=== PATIENT | female | born 1950 | race Caucasian/White ===

== ENCOUNTER 2020-02-23 15:49 | Inpatient (IN) ==
[2020-02-23] MEDS ORDERED: ONDANSETRON 4 MG/2 ML VIAL ONE ×3 (15:57→18:08)
[2020-02-23] MEDS ORDERED: MORPHINE 4 MG/1 ML VIAL ONE (15:58)
[2020-02-23] MEDS ORDERED: DIPH/TET/ACEL PERT BOOSTER VACCINE 0.5 ML VIAL IM ONE (16:03)
[2020-02-23] MEDS ORDERED: SODIUM CHLORIDE 0.9% 1,000 ML IV STA (16:03)
[2020-02-23] MEDS ORDERED: fentaNYL 100 MCG/2 ML VIAL ONE ×2 (16:06→18:06)
[2020-02-23 16:23] LABS: Basophils # 0.1 10*3/uL (0.0-0.2); Basophils % 0.7 % (0.0-0.8); Eosinophils # 0.2 10*3/uL (0.0-0.87); Eosinophils % 1.7 % (0.00-10.9); Hematocrit 40.8 VOL% (35.7-47.0); Hemoglobin 12.9 GM/DL (12.0-16.0); Immature Granulocytes % 0.2 %; Immature Granulocytes Absolute 0.02 #; Lymphocytes % 39.1 % (21.3-54.2); Mean Corpuscular HGB Conc 31.6 GM/DL (32-36); Mean Corpuscular Volume 85.7 FL (87-102); Mean Platelet Volume 9.1 FL (9.6-12.0); Monocytes % 6.4 % (1.7-12.7); Neutrophils % 51.9 % (38.7-73.9); Platelet Count 351 T/CUMM (130-400); Red Blood Count 4.76 MC/CUMM (3.8-5.5); Red Cell Distribution Width 14.1 % (9.3-17.3); White Blood Count 10.1 T/CUMM (4-12)
[2020-02-23] MEDS ORDERED: ONDANSETRON 4 MG/2 ML VIAL IV PRN ×2 (16:31→20:21)
[2020-02-23] MEDS ORDERED: ACETAMINOPHEN 325 MG TABLET PO PRN (16:31)
[2020-02-23 16:33] LABS: PT Patient Result 11.1 SECS (9.8-11.9)
[2020-02-23 16:49] LABS: Albumin 3.7 G/DL (3.4-5.0); Bilirubin,Total 0.7 MG/DL (0.2-1.0); Calcium 8.7 MG/DL (8.5-10.1); Osmolality,Calculated 277.7 MOS/KG (273-304); Total Protein 7.7 G/DL (6.4-8.3)
[2020-02-23] MEDS ORDERED: fentaNYL 100 MCG/2 ML VIAL IV STA (16:55)
[2020-02-23] MEDS: LACTATED RINGERS 1,000 ML IV SCH ×2 (17:30→21:18)
[2020-02-23] MEDS ORDERED: LIDOCAINE 2% 5 ML VIAL ONE (18:06)
[2020-02-23] MEDS ORDERED: SEVOFLURANE 1 UNIT/15 MINUTE INH ONE (18:06)
[2020-02-23] MEDS ORDERED: propofoL 200 MG/20 ML VIAL IV ONE (18:06)
[2020-02-23] MEDS ORDERED: KETOROLAC 30 MG/1 ML VIAL ONE (18:07)
[2020-02-23] MEDS ORDERED: PHENYLEPHRINE 1 MG/10 ML SYRINGE IV ONE (18:07)
[2020-02-23] MEDS ORDERED: DEXAMETHASONE 4 MG/1 ML VIAL ONE (18:07)
[2020-02-23] MEDS ORDERED: MIDAZOLAM 2 MG/2 ML VIAL ONE (18:07)
[2020-02-23] MEDS ORDERED: MEPERIDINE 25 MG/1 ML VIAL ONE (18:07)
[2020-02-23] MEDS ORDERED: ACETAMINOPHEN 1,000 MG/100 ML VIAL IV ONE (18:07)
[2020-02-23] MEDS ORDERED: SUCCINYLCHOLINE 200 MG/10 ML VIAL ONE (18:07)
[2020-02-23] MEDS ORDERED: HYDROmorphone 2 MG/1 ML VIAL ONE (18:08)
[2020-02-23] MEDS ORDERED: LACTATED RINGERS 2,000 ML IV ONE (18:08)
[2020-02-23] MEDS ORDERED: MEPERIDINE 25 MG/1 ML VIAL IV PRN (18:19)
[2020-02-23] MEDS: HYDROmorphone 2 MG/1 ML VIAL IV PRN ×4 (18:20→18:40)
[2020-02-23] MEDS ORDERED: PROMETHAZINE 25 MG/1 ML VIAL IM PRN (20:21)
[2020-02-23] MEDS: KETOROLAC 15 MG/1 ML VIAL IV SCH (21:15)
[2020-02-24] MEDS: KETOROLAC 15 MG/1 ML VIAL IV SCH ×4 (03:30→21:12)
[2020-02-24] MEDS: LACTATED RINGERS 1,000 ML IV SCH ×2 (04:47→07:32)
[2020-02-24 05:42] LABS: Hematocrit 36.3 VOL% (35.7-47.0); Hemoglobin 11.6 GM/DL (12.0-16.0); Mean Corpuscular Volume 85.4 FL (87-102); Platelet Count 215 T/CUMM (130-400); Red Blood Count 4.25 MC/CUMM (3.8-5.5); Red Cell Distribution Width 14.3 % (9.3-17.3); White Blood Count 9.4 T/CUMM (4-12)
[2020-02-24 05:43] LABS: Basophils % 0.1 % (0.0-0.8); Immature Granulocytes % 0.5 %; Immature Granulocytes Absolute 0.05 #; Lymphocytes # 0.6 10*3/uL (1.4-4.0); Lymphocytes % 5.8 % (21.3-54.2); Mean Platelet Volume 8.9 FL (9.6-12.0); Monocytes % 4.9 % (1.7-12.7); Neutrophils % 88.7 % (38.7-73.9)
[2020-02-24 06:06] LABS: Calcium 8.4 MG/DL (8.5-10.1); Osmolality,Calculated 274.8 MOS/KG (273-304)
[2020-02-24] MEDS ORDERED: PANTOPRAZOLE 40 MG TABLET PO SCH (09:00)
[2020-02-24] MEDS: ENOXAPARIN 40 MG/0.4 ML SYRINGE SUBCUT SCH (09:51)
[2020-02-24] MEDS: HYDROmorphone 2 MG/1 ML VIAL IV PRN (14:06)
[2020-02-25] MEDS: KETOROLAC 15 MG/1 ML VIAL IV SCH ×3 (03:12→15:08)
[2020-02-25] MEDS: ENOXAPARIN 40 MG/0.4 ML SYRINGE SUBCUT SCH (10:11)
[2020-02-25] MEDS ORDERED: ACETAMINOPHEN 325 MG TABLET PO PRN (19:53)
[2020-02-26] MEDS: ENOXAPARIN 40 MG/0.4 ML SYRINGE SUBCUT SCH (11:26)
[2020-02-26] MEDS: DEXT 5% NACL 0.45% KCL 20 MEQ 20 MEQ/1,000 ML BAG IV SCH ×2 (11:26→21:21)
[2020-02-26] MEDS: CLINDAMYCIN INJ 900 MG in PREMIX 1 EACH IV SCH ×2 (11:27→17:08)
[2020-02-26] MEDS: LEVOFLOXACIN INJ 750 MG in PREMIX 1 EACH IV SCH (12:54)
[2020-02-26] MEDS: HYDROmorphone 2 MG/1 ML VIAL IV PRN (21:22)
[2020-02-27] MEDS: CLINDAMYCIN INJ 900 MG in PREMIX 1 EACH IV SCH ×3 (00:03→19:16)
[2020-02-27] MEDS: DEXT 5% NACL 0.45% KCL 20 MEQ 20 MEQ/1,000 ML BAG IV SCH ×3 (05:46→22:34)
[2020-02-27] MEDS: MAGNESIUM HYDROXIDE SUSP 30 ML UDCUP PO PRN (08:28)
[2020-02-27] MEDS: HYDROmorphone 2 MG/1 ML VIAL IV PRN (10:26)
[2020-02-27] MEDS: LEVOFLOXACIN INJ 750 MG in PREMIX 1 EACH IV SCH (10:29)
[2020-02-27] MEDS: ENOXAPARIN 40 MG/0.4 ML SYRINGE SUBCUT SCH (10:29)
[2020-02-28] MEDS: CLINDAMYCIN INJ 900 MG in PREMIX 1 EACH IV SCH ×3 (00:38→17:09)
[2020-02-28 05:59] LABS: Basophils % 0.3 % (0.0-0.8); Eosinophils # 0.3 10*3/uL (0.0-0.87); Eosinophils % 4.3 % (0.00-10.9); Hematocrit 29.1 VOL% (35.7-47.0); Hemoglobin 9.1 GM/DL (12.0-16.0); Immature Granulocytes % 0.5 %; Immature Granulocytes Absolute 0.03 #; Lymphocytes # 1.1 10*3/uL (1.4-4.0); Mean Corpuscular HGB Conc 31.3 GM/DL (32-36); Mean Corpuscular Volume 88.7 FL (87-102); Mean Platelet Volume 9.2 FL (9.6-12.0); Monocytes % 8.8 % (1.7-12.7); Neutrophils % 69.1 % (38.7-73.9); Platelet Count 203 T/CUMM (130-400); Red Blood Count 3.28 MC/CUMM (3.8-5.5); White Blood Count 6.2 T/CUMM (4-12)
[2020-02-28 06:21] LABS: Calcium 8.2 MG/DL (8.5-10.1); Osmolality,Calculated 278.4 MOS/KG (273-304)
[2020-02-28] MEDS: DEXT 5% NACL 0.45% KCL 20 MEQ 20 MEQ/1,000 ML BAG IV SCH ×3 (10:34→21:07)
[2020-02-28] MEDS: ENOXAPARIN 40 MG/0.4 ML SYRINGE SUBCUT SCH (10:36)
[2020-02-28] MEDS: MAGNESIUM HYDROXIDE SUSP 30 ML UDCUP PO PRN (10:37)
[2020-02-28] MEDS: LEVOFLOXACIN INJ 750 MG in PREMIX 1 EACH IV SCH (11:52)
[2020-02-29] MEDS: CLINDAMYCIN INJ 900 MG in PREMIX 1 EACH IV SCH ×3 (00:44→17:11)
[2020-02-29] MEDS: DEXT 5% NACL 0.45% KCL 20 MEQ 20 MEQ/1,000 ML BAG IV SCH (06:21)
[2020-02-29] MEDS: MAGNESIUM HYDROXIDE SUSP 30 ML UDCUP PO PRN (10:10)
[2020-02-29] MEDS: ENOXAPARIN 40 MG/0.4 ML SYRINGE SUBCUT SCH (10:11)
[2020-02-29] MEDS: LEVOFLOXACIN INJ 750 MG in PREMIX 1 EACH IV SCH (10:55)
[2020-03-01] MEDS: CLINDAMYCIN INJ 900 MG in PREMIX 1 EACH IV SCH ×3 (01:12→16:05)
[2020-03-01] MEDS: MAGNESIUM HYDROXIDE SUSP 30 ML UDCUP PO PRN (09:37)
[2020-03-01] MEDS: ENOXAPARIN 40 MG/0.4 ML SYRINGE SUBCUT SCH (09:37)
[2020-03-01] MEDS: LEVOFLOXACIN INJ 750 MG in PREMIX 1 EACH IV SCH (10:13)
[2020-03-02] MEDS: CLINDAMYCIN INJ 900 MG in PREMIX 1 EACH IV SCH ×3 (01:10→17:51)
[2020-03-02] MEDS: LACTATED RINGERS 1,000 ML IV SCH ×2 (08:52→16:13)
[2020-03-02] MEDS: ENOXAPARIN 40 MG/0.4 ML SYRINGE SUBCUT SCH (09:10)
[2020-03-02] MEDS ORDERED: LIDOCAINE 2% 5 ML VIAL ONE (10:12)
[2020-03-02] MEDS ORDERED: ONDANSETRON 4 MG/2 ML VIAL ONE ×2 (10:12→10:26)
[2020-03-02] MEDS ORDERED: DEXAMETHASONE 4 MG/1 ML VIAL ONE (10:12)
[2020-03-02] MEDS ORDERED: SEVOFLURANE 1 UNIT/15 MINUTE INH ONE (10:12)
[2020-03-02] MEDS ORDERED: propofoL 200 MG/20 ML VIAL IV ONE (10:12)
[2020-03-02] MEDS ORDERED: fentaNYL 100 MCG/2 ML VIAL ONE (10:12)
[2020-03-02] MEDS ORDERED: PHENYLEPHRINE 1 MG/10 ML SYRINGE IV ONE (10:13)
[2020-03-02] MEDS ORDERED: HYDROmorphone 2 MG/1 ML VIAL ONE (10:26)
[2020-03-02] MEDS: HYDROmorphone 2 MG/1 ML VIAL IV PRN ×4 (10:26→23:01)
[2020-03-02] MEDS ORDERED: ONDANSETRON 4 MG/2 ML VIAL IV PRN (10:31)
[2020-03-02] MEDS: LEVOFLOXACIN INJ 750 MG in PREMIX 1 EACH IV SCH (11:29)
[2020-03-02] MEDS: MAGNESIUM HYDROXIDE SUSP 30 ML UDCUP PO PRN (23:01)
[2020-03-03] MEDS: CLINDAMYCIN INJ 900 MG in PREMIX 1 EACH IV SCH ×3 (00:48→17:02)
[2020-03-03] MEDS: LACTATED RINGERS 1,000 ML IV SCH ×3 (00:48→17:02)
[2020-03-03] MEDS: HYDROmorphone 2 MG/1 ML VIAL IV PRN ×3 (00:56→14:50)
[2020-03-03] MEDS: ENOXAPARIN 40 MG/0.4 ML SYRINGE SUBCUT SCH (08:00)
[2020-03-03] MEDS: LEVOFLOXACIN INJ 750 MG in PREMIX 1 EACH IV SCH (12:18)
[2020-03-03] MEDS: MAGNESIUM HYDROXIDE SUSP 30 ML UDCUP PO PRN (22:48)
[2020-03-04] MEDS: LACTATED RINGERS 1,000 ML IV SCH ×3 (02:07→22:40)
[2020-03-04] MEDS: CLINDAMYCIN INJ 900 MG in PREMIX 1 EACH IV SCH ×3 (02:07→17:17)
[2020-03-04] MEDS: HYDROmorphone 2 MG/1 ML VIAL IV PRN ×2 (09:17→15:11)
[2020-03-04] MEDS: ENOXAPARIN 40 MG/0.4 ML SYRINGE SUBCUT SCH (09:17)
[2020-03-04] MEDS: LEVOFLOXACIN INJ 750 MG in PREMIX 1 EACH IV SCH (10:02)
[2020-03-05] MEDS: LACTATED RINGERS 1,000 ML IV SCH (02:07)
[2020-03-05] MEDS: CLINDAMYCIN INJ 900 MG in PREMIX 1 EACH IV SCH ×3 (02:25→22:00)
[2020-03-05] MEDS: HYDROmorphone 2 MG/1 ML VIAL IV PRN ×2 (02:25→06:42)
[2020-03-05] MEDS: MAGNESIUM HYDROXIDE SUSP 30 ML UDCUP PO PRN (02:27)
[2020-03-05 05:51] LABS: Basophils % 0.5 % (0.0-0.8); Eosinophils # 0.2 10*3/uL (0.0-0.87); Eosinophils % 2.6 % (0.00-10.9); Hematocrit 33.4 VOL% (35.7-47.0); Hemoglobin 10.5 GM/DL (12.0-16.0); Immature Granulocytes % 1.7 %; Immature Granulocytes Absolute 0.13 #; Lymphocytes # 1.9 10*3/uL (1.4-4.0); Lymphocytes % 24.5 % (21.3-54.2); Mean Corpuscular HGB Conc 31.4 GM/DL (32-36); Mean Corpuscular Volume 86.8 FL (87-102); Mean Platelet Volume 8.2 FL (9.6-12.0); Monocytes % 8.6 % (1.7-12.7); Neutrophils % 62.1 % (38.7-73.9); Platelet Count 418 T/CUMM (130-400); Red Blood Count 3.85 MC/CUMM (3.8-5.5); Red Cell Distribution Width 15.6 % (9.3-17.3); White Blood Count 7.8 T/CUMM (4-12)
[2020-03-05 06:17] LABS: Calcium 8.9 MG/DL (8.5-10.1); Osmolality,Calculated 277.4 MOS/KG (273-304)
[2020-03-05] MEDS: ENOXAPARIN 40 MG/0.4 ML SYRINGE SUBCUT SCH (10:23)
[2020-03-05] MEDS: LEVOFLOXACIN INJ 750 MG in PREMIX 1 EACH IV SCH (11:58)
[2020-03-06] MEDS: LACTATED RINGERS 1,000 ML IV SCH ×6 (01:00→23:52)
[2020-03-06] MEDS: CLINDAMYCIN INJ 900 MG in PREMIX 1 EACH IV SCH (02:42)
[2020-03-06] MEDS: ENOXAPARIN 40 MG/0.4 ML SYRINGE SUBCUT SCH (08:15)
[2020-03-06] MEDS: PIPERACILLIN/TAZOBACTAM 3,375 MG in SODIUM CHLORIDE 0.9% 100 ML IV SCH ×2 (11:32→17:05)
[2020-03-06] MEDS: VANCOMYCIN INJ 1,500 MG in SODIUM CHLORIDE 0.9% 500 ML IV SCH (14:28)
[2020-03-06] MEDS: HYDROmorphone 2 MG/1 ML VIAL IV PRN (23:48)
[2020-03-07] MEDS: PIPERACILLIN/TAZOBACTAM 3,375 MG in SODIUM CHLORIDE 0.9% 100 ML IV SCH ×3 (01:20→17:36)
[2020-03-07] MEDS: VANCOMYCIN INJ 1,500 MG in SODIUM CHLORIDE 0.9% 500 ML IV SCH ×2 (05:58→17:55)
[2020-03-07] MEDS: HYDROmorphone 2 MG/1 ML VIAL IV PRN ×2 (06:32→21:25)
[2020-03-07] MEDS: ENOXAPARIN 40 MG/0.4 ML SYRINGE SUBCUT SCH (08:10)
[2020-03-07] MEDS: LACTATED RINGERS 1,000 ML IV SCH ×2 (10:17→17:12)
[2020-03-08] MEDS: PIPERACILLIN/TAZOBACTAM 3,375 MG in SODIUM CHLORIDE 0.9% 100 ML IV SCH ×3 (01:46→18:00)
[2020-03-08 06:21] LABS: Calcium 8.2 MG/DL (8.5-10.1); Osmolality,Calculated 278.4 MOS/KG (273-304)
[2020-03-08] MEDS: HYDROmorphone 2 MG/1 ML VIAL IV PRN (06:30)
[2020-03-08] MEDS: VANCOMYCIN INJ 1,500 MG in SODIUM CHLORIDE 0.9% 500 ML IV SCH ×2 (06:37→20:38)
[2020-03-08] MEDS: ENOXAPARIN 40 MG/0.4 ML SYRINGE SUBCUT SCH (09:19)
[2020-03-08] MEDS: LACTATED RINGERS 1,000 ML IV SCH ×4 (10:18→20:33)
[2020-03-09] MEDS: PIPERACILLIN/TAZOBACTAM 3,375 MG in SODIUM CHLORIDE 0.9% 100 ML IV SCH ×3 (01:09→16:31)
[2020-03-09] MEDS: LACTATED RINGERS 1,000 ML IV SCH (04:42)
[2020-03-09] MEDS: HYDROmorphone 2 MG/1 ML VIAL IV PRN ×2 (06:05→18:12)
[2020-03-09] MEDS: VANCOMYCIN INJ 1,500 MG in SODIUM CHLORIDE 0.9% 500 ML IV SCH ×2 (07:52→20:54)
[2020-03-09] MEDS: ENOXAPARIN 40 MG/0.4 ML SYRINGE SUBCUT SCH (11:51)
[2020-03-10] MEDS: PIPERACILLIN/TAZOBACTAM 3,375 MG in SODIUM CHLORIDE 0.9% 100 ML IV SCH ×2 (01:47→08:36)
[2020-03-10 08:27] VITALS: BP 123/53
[2020-03-10] MEDS: VANCOMYCIN INJ 1,500 MG in SODIUM CHLORIDE 0.9% 500 ML IV SCH (08:36)
[2020-03-10] MEDS: ENOXAPARIN 40 MG/0.4 ML SYRINGE SUBCUT SCH (08:37)
[2020-03-10] MEDS: HYDROmorphone 2 MG/1 ML VIAL IV PRN (09:02)
[2020-03-10] MEDS ORDERED: VANCOMYCIN INJ 1,250 MG in SODIUM CHLORIDE 0.9% 250 ML IV SCH (20:00)
== END 2020-03-10 12:50 | DRG 571 ==
LOC: N.ED 15:49 → N.EDINP 15:49 → N.3E 16:59
PROVIDERS: ADMIT Surgery; ATTEND Surgery

== ENCOUNTER 2020-03-19 12:39 | Inpatient (IN) ==
[2020-03-19] MEDS ORDERED: ACETAMINOPHEN 325 MG TABLET PO PRN (15:22)
[2020-03-19] MEDS ORDERED: PROMETHAZINE 25 MG/1 ML VIAL IM PRN (15:22)
[2020-03-19] MEDS ORDERED: ONDANSETRON 4 MG/2 ML VIAL IV PRN (15:22)
[2020-03-19] MEDS: LACTATED RINGERS 1,000 ML IV SCH (15:50)
[2020-03-19 16:04] LABS: Basophils % 0.6 % (0.0-0.8); Eosinophils # 0.2 10*3/uL (0.0-0.87); Eosinophils % 5.4 % (0.00-10.9); Hematocrit 35.7 VOL% (35.7-47.0); Hemoglobin 10.8 GM/DL (12.0-16.0); Immature Granulocytes % 0.6 %; Immature Granulocytes Absolute 0.02 #; Lymphocytes # 1.2 10*3/uL (1.4-4.0); Lymphocytes % 37.8 % (21.3-54.2); Mean Corpuscular HGB Conc 30.3 GM/DL (32-36); Mean Corpuscular Volume 87.1 FL (87-102); Mean Platelet Volume 8.8 FL (9.6-12.0); Monocytes % 11.7 % (1.7-12.7); Neutrophils % 43.9 % (38.7-73.9); Platelet Count 194 T/CUMM (130-400); Red Cell Distribution Width 14.7 % (9.3-17.3); White Blood Count 3.2 T/CUMM (4-12)
[2020-03-19] MEDS: LEVOFLOXACIN INJ 750 MG in PREMIX 1 EACH IV SCH (16:10)
[2020-03-19 16:25] LABS: Calcium 8.6 MG/DL (8.5-10.1); Osmolality,Calculated 280.5 MOS/KG (273-304)
[2020-03-19 16:57] LABS: Eosinophils 3 % (0-10); Lymphocytes 31 % (20-55); Platelet Estimate Normal; Segmented Neutrophils 57 % (50-85); Total Cells Counted 100
[2020-03-19 16:58] LABS: Hypochromasia Slight
[2020-03-19] MEDS ORDERED: ACETIC ACID 0.25% IRRIGATION 1,000 ML BOTTLE IRRIG SCH (21:00)
[2020-03-20] MEDS: LACTATED RINGERS 1,000 ML IV SCH ×2 (00:24→14:23)
[2020-03-20 06:09] LABS: Basophils % 0.9 % (0.0-0.8); Eosinophils # 0.2 10*3/uL (0.0-0.87); Eosinophils % 5.3 % (0.00-10.9); Hematocrit 35.5 VOL% (35.7-47.0); Hemoglobin 10.9 GM/DL (12.0-16.0); Immature Granulocytes % 0.3 %; Immature Granulocytes Absolute 0.01 #; Lymphocytes # 1.5 10*3/uL (1.4-4.0); Lymphocytes % 46.7 % (21.3-54.2); Mean Corpuscular HGB Conc 30.7 GM/DL (32-36); Mean Platelet Volume 9.3 FL (9.6-12.0); Monocytes % 12.5 % (1.7-12.7); Neutrophils % 34.3 % (38.7-73.9); Platelet Count 228 T/CUMM (130-400); Red Blood Count 4.13 MC/CUMM (3.8-5.5); Red Cell Distribution Width 14.7 % (9.3-17.3); White Blood Count 3.2 T/CUMM (4-12)
[2020-03-20 06:24] LABS: Calcium 8.7 MG/DL (8.5-10.1); Osmolality,Calculated 281.3 MOS/KG (273-304)
[2020-03-20 06:40] LABS: Band Neutrophils 6 % (0-10); Eosinophils 4 % (0-10); Lymphocytes 43 % (20-55); Platelet Estimate Normal; Segmented Neutrophils 35 % (50-85); Total Cells Counted 100
[2020-03-20 06:41] LABS: Anisocytosis Slight; Macrocytosis Slight
[2020-03-20] MEDS: ENOXAPARIN 40 MG/0.4 ML SYRINGE SUBCUT SCH (08:49)
[2020-03-20] MEDS: ACETIC ACID 0.25% IRRIGATION 1,000 ML BOTTLE IRRIG SCH (08:49)
[2020-03-20] MEDS: PANTOPRAZOLE 40 MG TABLET PO SCH (08:49)
[2020-03-20] MEDS ORDERED: LACTATED RINGERS 1,000 ML IV SCH (09:00)
[2020-03-20] MEDS ORDERED: LIDOCAINE 1%/EPI INJ 20 ML VIAL ONE (09:19)
[2020-03-20] MEDS ORDERED: LIDOCAINE 1% 20 ML VIAL ONE (09:19)
[2020-03-20] MEDS ORDERED: fentaNYL 100 MCG/2 ML VIAL ONE (09:50)
[2020-03-20] MEDS ORDERED: HYDROmorphone 2 MG/1 ML VIAL IV PRN (09:50)
[2020-03-20] MEDS ORDERED: ONDANSETRON 4 MG/2 ML VIAL IV PRN (09:50)
[2020-03-20] MEDS ORDERED: MIDAZOLAM 2 MG/2 ML VIAL ONE (09:50)
[2020-03-20] MEDS ORDERED: ACETAMINOPHEN 1,000 MG/100 ML VIAL IV ONE (09:51)
[2020-03-20] MEDS ORDERED: propofoL 200 MG/20 ML VIAL IV ONE (09:51)
[2020-03-20] MEDS ORDERED: PHENYLEPHRINE 1 MG/10 ML SYRINGE IV ONE (09:51)
[2020-03-20] MEDS ORDERED: SEVOFLURANE 1 UNIT/15 MINUTE INH ONE (09:51)
[2020-03-20] MEDS ORDERED: LIDOCAINE 2% 5 ML VIAL ONE (09:51)
[2020-03-20] MEDS: MORPHINE 4 MG/1 ML VIAL IV PRN ×2 (11:11→16:36)
[2020-03-20] MEDS: traMADol 50 MG TABLET PO PRN ×2 (14:24→20:34)
[2020-03-20] MEDS: LEVOFLOXACIN INJ 750 MG in PREMIX 1 EACH IV SCH (14:24)
[2020-03-20] MEDS: ZALEPLON 5 MG CAPSULE PO PRN (20:34)
[2020-03-21] MEDS: LACTATED RINGERS 1,000 ML IV SCH ×5 (00:17→19:00)
[2020-03-21] MEDS: traMADol 50 MG TABLET PO PRN ×3 (00:18→21:03)
[2020-03-21] MEDS: PANTOPRAZOLE 40 MG TABLET PO SCH (09:28)
[2020-03-21] MEDS: ENOXAPARIN 40 MG/0.4 ML SYRINGE SUBCUT SCH (09:28)
[2020-03-21] MEDS: ACETIC ACID 0.25% IRRIGATION 1,000 ML BOTTLE IRRIG SCH (09:36)
[2020-03-21] MEDS: MORPHINE 4 MG/1 ML VIAL IV PRN (09:48)
[2020-03-21] MEDS: LEVOFLOXACIN INJ 750 MG in PREMIX 1 EACH IV SCH (15:40)
[2020-03-21] MEDS: ZALEPLON 5 MG CAPSULE PO PRN (21:02)
[2020-03-22] MEDS: LACTATED RINGERS 1,000 ML IV SCH ×3 (04:29→23:14)
[2020-03-22] MEDS: traMADol 50 MG TABLET PO PRN ×2 (07:06→20:59)
[2020-03-22] MEDS ORDERED: MAGNESIUM HYDROXIDE SUSP 30 ML UDCUP PO PRN (08:37)
[2020-03-22] MEDS: ENOXAPARIN 40 MG/0.4 ML SYRINGE SUBCUT SCH (08:57)
[2020-03-22] MEDS: PANTOPRAZOLE 40 MG TABLET PO SCH (08:57)
[2020-03-22] MEDS: SODIUM HYPOCHLORITE 0.25% IRRIG 473 ML BOTTLE TOP SCH (09:01)
[2020-03-22] MEDS: MORPHINE 4 MG/1 ML VIAL IV PRN ×3 (09:01→22:07)
[2020-03-22] MEDS: ACETIC ACID 0.25% IRRIGATION 1,000 ML BOTTLE IRRIG SCH (09:20)
[2020-03-22] MEDS: LEVOFLOXACIN INJ 750 MG in PREMIX 1 EACH IV SCH (16:07)
[2020-03-22] MEDS: ZALEPLON 5 MG CAPSULE PO PRN (20:59)
[2020-03-23] MEDS: traMADol 50 MG TABLET PO PRN (03:32)
[2020-03-23 05:53] LABS: Basophils % 0.8 % (0.0-0.8); Eosinophils # 0.2 10*3/uL (0.0-0.87); Eosinophils % 3.9 % (0.00-10.9); Hematocrit 33.9 VOL% (35.7-47.0); Hemoglobin 10.3 GM/DL (12.0-16.0); Immature Granulocytes % 0.4 %; Immature Granulocytes Absolute 0.02 #; Lymphocytes # 1.8 10*3/uL (1.4-4.0); Lymphocytes % 36.1 % (21.3-54.2); Mean Corpuscular HGB Conc 30.4 GM/DL (32-36); Mean Corpuscular Volume 86.3 FL (87-102); Mean Platelet Volume 9.2 FL (9.6-12.0); Monocytes % 8.2 % (1.7-12.7); Neutrophils % 50.6 % (38.7-73.9); Platelet Count 258 T/CUMM (130-400); Red Blood Count 3.93 MC/CUMM (3.8-5.5); Red Cell Distribution Width 14.5 % (9.3-17.3); White Blood Count 4.9 T/CUMM (4-12)
[2020-03-23 06:15] LABS: Calcium 8.9 MG/DL (8.5-10.1); Osmolality,Calculated 279.3 MOS/KG (273-304)
[2020-03-23] MEDS: MORPHINE 4 MG/1 ML VIAL IV PRN (06:34)
[2020-03-23] MEDS: LACTATED RINGERS 1,000 ML IV SCH (07:01)
[2020-03-23] MEDS: PANTOPRAZOLE 40 MG TABLET PO SCH (10:49)
[2020-03-23] MEDS: ENOXAPARIN 40 MG/0.4 ML SYRINGE SUBCUT SCH (10:50)
[2020-03-23] MEDS: SODIUM HYPOCHLORITE 0.25% IRRIG 473 ML BOTTLE TOP SCH (10:51)
[2020-03-23] MEDS: ACETIC ACID 0.25% IRRIGATION 1,000 ML BOTTLE IRRIG SCH (10:51)
[2020-03-23 11:27] VITALS: BP 121/51
== END 2020-03-23 15:10 | disposition home health service (06) | DRG 908 ==
LOC: N.3E 15:17
PROVIDERS: ADMIT Surgery; ATTEND Surgery

== ENCOUNTER 2020-04-10 05:36 | Inpatient (IN) ==
[2020-04-10] MEDS ORDERED: LIDOCAINE 1%/EPI INJ 20 ML VIAL ONE (06:27)
[2020-04-10] MEDS: LACTATED RINGERS 1,000 ML IV SCH ×4 (06:36→21:32)
[2020-04-10] MEDS ORDERED: ceFAZolin 2,000 MG in PREMIX 1 EACH IV ONE (07:00)
[2020-04-10] MEDS ORDERED: FAMOTIDINE 20 MG/2 ML VIAL IV ONE (07:05)
[2020-04-10] MEDS ORDERED: ACETAMINOPHEN 1,000 MG/100 ML VIAL IV ONE (07:40)
[2020-04-10] MEDS ORDERED: propofoL 200 MG/20 ML VIAL IV ONE (08:24)
[2020-04-10] MEDS ORDERED: SEVOFLURANE 1 UNIT/15 MINUTE INH ONE (08:24)
[2020-04-10] MEDS ORDERED: LIDOCAINE 2% 5 ML VIAL ONE (08:24)
[2020-04-10] MEDS ORDERED: PHENYLEPHRINE 1 MG/10 ML SYRINGE IV ONE (08:25)
[2020-04-10] MEDS ORDERED: MIDAZOLAM 2 MG/2 ML VIAL ONE (08:25)
[2020-04-10] MEDS ORDERED: ONDANSETRON 4 MG/2 ML VIAL ONE (08:25)
[2020-04-10] MEDS ORDERED: ROCURONIUM 100 MG/10 ML VIAL IV ONE (08:25)
[2020-04-10] MEDS ORDERED: SUCCINYLCHOLINE 200 MG/10 ML VIAL ONE (08:25)
[2020-04-10] MEDS ORDERED: DEXAMETHASONE 4 MG/1 ML VIAL ONE (08:25)
[2020-04-10] MEDS ORDERED: fentaNYL 100 MCG/2 ML VIAL ONE (08:25)
[2020-04-10] MEDS ORDERED: ONDANSETRON 4 MG/2 ML VIAL IV PRN (12:57)
[2020-04-10] MEDS ORDERED: PROMETHAZINE 25 MG/1 ML VIAL IM PRN (12:57)
[2020-04-10] MEDS ORDERED: HYDROmorphone 2 MG/1 ML VIAL IV PRN (12:57)
[2020-04-10] MEDS: SUCRALFATE 1 GM TABLET PO SCH ×4 (14:16→21:32)
[2020-04-10] MEDS: PANTOPRAZOLE 40 MG TABLET PO SCH ×2 (14:17→21:32)
[2020-04-10] MEDS: ENOXAPARIN 40 MG/0.4 ML SYRINGE SUBCUT SCH (21:32)
[2020-04-11] MEDS: LACTATED RINGERS 1,000 ML IV SCH (05:45)
[2020-04-11] MEDS: SUCRALFATE 1 GM TABLET PO SCH ×5 (09:18→21:21)
[2020-04-11] MEDS: PANTOPRAZOLE 40 MG TABLET PO SCH ×2 (09:19→21:21)
[2020-04-11] MEDS: ACETAMINOPHEN 325 MG TABLET PO PRN ×3 (11:41→16:50)
[2020-04-11] MEDS: ENOXAPARIN 40 MG/0.4 ML SYRINGE SUBCUT SCH (21:21)
[2020-04-12] MEDS: ACETAMINOPHEN 325 MG TABLET PO PRN ×4 (07:50→21:03)
[2020-04-12] MEDS: SUCRALFATE 1 GM TABLET PO SCH ×5 (07:50→21:02)
[2020-04-12] MEDS: PANTOPRAZOLE 40 MG TABLET PO SCH ×3 (07:50→21:02)
[2020-04-12] MEDS: ENOXAPARIN 40 MG/0.4 ML SYRINGE SUBCUT SCH (21:02)
[2020-04-13] MEDS: SUCRALFATE 1 GM TABLET PO SCH (08:12)
[2020-04-13] MEDS: PANTOPRAZOLE 40 MG TABLET PO SCH (08:12)
[2020-04-13] MEDS: ACETAMINOPHEN 325 MG TABLET PO PRN (09:30)
[2020-04-13 12:08] VITALS: BP 120/64
== END 2020-04-13 12:50 | disposition home health service (06) | DRG 941 ==
LOC: N.OR 05:36 → N.SDSINP 05:38 → N.3E 12:56
PROVIDERS: ADMIT Surgery; ATTEND Surgery